=== PATIENT | female | born 1975 | race Two or more races ===

== ENCOUNTER 2024-06-01 10:45 | Emergency (ER) | payer OTHER, SELFPAY ==
[~2024-06-01] VITALS: Ht 160 cm; Wt 64.1 kg
[2024-06-01 10:46] VITALS: BP 158/74; TEMP 97.8; O2SAT 100
[2024-06-01 12:26] LABS: BASO % 0.2 % (0.0-1.0); EOS % 0.2 % (0.0-3.0); HEMATOCRIT 38.6 % (36.0-47.0); HEMOGLOBIN 12.2 g/dl (12.0-15.5); LYMPH # 1.8 10^3/uL (1.5-5.0); LYMPH % 13.9 % (24.0-44.0); MEAN CORPUSCULAR HEMOGLOBIN 26.2 pg (27.0-33.0); MEAN CORPUSCULAR HGB CONC 31.6 g/dl (32.0-36.5); MONO % 8.1 % (2.0-8.0); NEUTROPHILS # 9.9 10^3/uL (1.5-8.5); NEUTROPHILS % 77.1 % (36.0-66.0); PLATELET COUNT, AUTOMATED 318 10^3/uL (150-450); RED BLOOD COUNT 4.65 10^6/uL (4.00-5.40); WHITE BLOOD COUNT 12.8 10^3/uL (4.0-10.0)
[2024-06-01 12:58] LABS: BLOOD UREA NITROGEN 8 MG/DL (9-23); CALCIUM LEVEL 8.7 MG/DL (8.5-10.1); CARBON DIOXIDE LEVEL 27 MMOL/L (20-31); CHLORIDE LEVEL 105 MMOL/L (98-107); CREATININE FOR GFR 0.66 MG/DL (0.55-1.30); GLOMERULAR FILTRATION RATE > 60.0 (>58); GLUCOSE, FASTING 97 MG/DL (60-100); POTASSIUM SERUM 3.6 MMOL/L (3.5-5.1); SODIUM LEVEL 137 MMOL/L (136-145)
[2024-06-01] MEDS: KETOROLAC 30 MG/ML 1ML VIAL IV ONE (13:35)
[2024-06-01] MEDS ORDERED: ISOVUE-370 76% 100ML VIAL As Ordered ONE (13:56)
[2024-06-01] MEDS ORDERED: KETO10TAB PO (15:21)
[2024-06-01] MEDS ORDERED: AMOX875T2 PO (15:21)
== END 2024-06-01 15:28 | disposition home or self-care (01) ==
LOC: M ED 10:45
DX: K03.81 Cracked tooth (principal); Z79.2 Long term (current) use of antibiotics
CPT/HCPCS: 70487; 80048; 85025; 87040; 96374; 99282; J1885; Q9967